=== PATIENT | male | born 1950 | race Caucasian/White ===

== ENCOUNTER 2017-03-23 13:22 | Emergency (ER) | payer OTHER, SELFPAY ==
[2017-03-23 13:24] VITALS: BP 150/94; PULSE 103; RESP 20; TEMP 38.3; O2SAT 93; BMI 31.4
--- NOTE | 2017-03-23 15:42 | EKG12_ITS ---
Test Reason : SOB Blood Pressure : / mmHG Vent. Rate : 122 BPM Atrial Rate : 122 BPM P-R Int : 142 ms QRS Dur : 078 ms QT Int : 300 ms P-R-T Axes : 049 -01 005 degrees QTc Int : 427 ms Sinus tachycardia Low voltage QRS (limb leads) Poor R wave progression Confirmed by NYA UNGER, MALOU ([id number]), video editor MIR WILLIS ([id number]) on 03/28/2017 1:56:01 PM Referred By: COLT Confirmed By:MALOU FAY MD
--- NOTE | 2017-03-23 15:42 | RAD_ITS ---
STUDY: X-RAY CHEST REASON FOR EXAM: Male, 66 years old. Cough for 6 weeks. TECHNIQUE: PA and lateral views of the chest. COMPARISON: Prior comparison studies are not available for review at this time. FINDINGS: Lungs are underexpanded crowding the bronchovascular markings. There is perihilar interstitial thickening present in both lungs. There is no demonstrated pleural abnormality. Normal size heart. Normal mediastinum and tremayne. There is prominence of the pulmonary hilar arteries with peripheral pulmonary vascular congestion. There is atherosclerotic tortuosity of the aortic arch and descending thoracic aorta. There is demineralization of the osseous structures. There are mild degenerative changes of the thoracic spine. Normal visualized ribs, clavicles, and shoulders. Surgical clips are visible in left upper quadrant. RAD/Chest PA and Lateral IMPRESSION: Underexpanded lungs with mild pulmonary congestion. Electronically Signed: Nenita Perez MD at 16:48 EST , Service support ,
[2017-03-23 16:06] LABS: Hematocrit 47.6 % (40-54); Hemoglobin 16.4 g/dl (13.0-16.5); Mean Corp Hgb Conc 34.5 g/gl (32-36); Mean Corpuscular Hgb 30.2 pg (27.0-32.0); Mean Corpuscular Volume 87.7 fL (80-94); Mean Platelet Vol. 9.7 fl (6.2-12.0); Platelet Count 293 K/mm3 (150-450); RBC Distribution Width CV 13.4 % (11.6-14.6); Red Blood Count 5.43 M/mm3 (4.6-6.2)
[2017-03-23 16:09] LABS: Scan Indicated on CBC? Y/N NO
[2017-03-23] MEDS: 0.9% Normal Saline 1,000 ML 1000 ML IV (16:16)
[2017-03-23 16:22] VITALS: BP 155/94; PULSE 102; RESP 18; O2SAT 95
[2017-03-23 16:26] LABS: Anion Gap 8 (5-15); BUN 17 mg/dL (7-18); BUN/Creat Ratio 14.9 RATIO (10-20); Calcium,Total 9.1 mg/dL (8.5-10.1); Chloride 100 mmol/L (98-107); Creatinine, Serum 1.14 mg/dL (0.70-1.30); EST Glomerular Filtration Rate 68 mL/min (>60); Est Glom Filt Rate - Afr Amer 83 mL/min (>60); Glucose 120 mg/dL (74-106); Sodium Level 134 mmol/L (136-145)
[2017-03-23] MEDS: Acetaminophen 500 MG Tablet 1000 MG PO (17:02)
[2017-03-23 17:09] VITALS: BP 154/82; PULSE 99; RESP 18; O2SAT 96
--- NOTE | 2017-03-23 17:09 | ED.DEP ---
ED Disposition - Plan for ED Patient: Chief Complaint: Cold Sx Instructions: ED Flu Prescriptions: Hydrocodone Bit/Homatropine [Hycodan Syrup] 5 ml PO Q6H PRN PRN #30 ml PRN Reason: Cough Azithromycin [Zithromax Z-Darren] 250 mg PO UD #1 box Oseltamivir Phosphate [Tamiflu] 75 mg PO BID #10 cap Referrals: Care Physician,No Primary [Primary Care Provider] -
--- NOTE | 2017-03-23 17:13 | ED.VISSUMM ---
- ER Visit Summary Date of Service: 03/23/17 Chief Complaint: URI-like illness. History of Present Illness: The patient is a 66 M who has been ill for about 6 weeks with a head cold he complains of 6 weeks of subjective fevers congestion rhinorrhea productive cough. In the past couple of days however he has developed headache muscle aches and joint aches. He does have a history of migraines. His headache is currently 5 out of 10. His muscle and joint aches are currently 2 out of 10. He denies any vomiting or diarrhea. He is not short of breath. 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 Physical Examination: Temperature 101.0. Heart rate 103 respiratory rate 20 pulse ox 93% on room air TMs are clear Neck supple Oropharynx clear Heart regular rhythms slightly tachycardic Lungs are clear without rales rhonchi or wheezes Abdomen soft. Test Results: EKG shows sinus rhythm at a rate of 122. Chest x-ray shows mild pulmonary congestion. CBC BMP unremarkable troponin negative. Influenza was positive for influenza A. Emergency Department Course and Treatment: She was treated with IV fluids and Tylenol here. Repeat vital signs are improved. Heart rate has normalized. Given his history of splenectomy with new symptoms in the past 2 to days we will start Tamiflu. Given persistent rhinosinusitis symptoms for 6 weeks I also believe antibiotics are indicated. He was prescribed azithromycin. He was given a prescription for Hycodan syrup for cough. He understands return for new or worsening symptoms was instructed on specific signs and symptoms to monitor for. All questions were answered bedside. Patient agreeable to plan was discharged home. Treatment Plan: [] Disposition: Discharge Impression: Influenza Rhinosinusitis This note was generated with [employer] dictation software. It may contain incorrect words, spelling, and punctuation that were not noted in review of the chart prior to signing ED Disposition - Plan for ED Patient: Chief Complaint: Cold Sx Instructions: ED Flu Prescriptions: Hydrocodone Bit/Homatropine [Hycodan Syrup] 5 ml PO Q6H PRN PRN #30 ml PRN Reason: Cough Azithromycin [Zithromax Z-Darren] 250 mg PO UD #1 box Oseltamivir Phosphate [Tamiflu] 75 mg PO BID #10 cap Referrals: Care Physician,No Primary [Primary Care Provider] -
== END 2017-03-23 17:37 | disposition home or self-care (01) ==
PROVIDERS: Emergency Provider Emergency Medicine
DX: J10.1 Influenza due to other identified influenza virus with other respiratory manifestations (principal); J32.9 Chronic sinusitis, unspecified; R09.89 Other specified symptoms and signs involving the circulatory and respiratory systems; G43.909 Migraine, unspecified, not intractable, without status migrainosus; Z90.81 Acquired absence of spleen; Z90.89 Acquired absence of other organs
CPT/HCPCS: 71046; 80048; 84484; 85027; 87804; 93005; 96360; 99284; J7030; A4216

== ENCOUNTER 2019-03-23 08:54 | Emergency (ER) | payer OTHER, SELFPAY ==
[2019-03-23 08:56] VITALS: BP 137/101; PULSE 89; RESP 18; TEMP 36.5; O2SAT 93; BMI 27.3
--- NOTE | 2019-03-23 09:30 | RAD_ITS ---
STUDY: X-RAY CHEST REASON FOR EXAM: Male, 68 years old. COUGH AND CONGESTION WITH HOARSENESS FOR SOMETIME NOW NOT GETTING ANY BETTER PER PATIENT. TECHNIQUE: PA and lateral views of the chest. COMPARISON: None. FINDINGS: The lungs are clear and expanded. There is no demonstrated pleural abnormality. Normal size heart. Normal mediastinum and tremayne. Normal visualized pulmonary arteries. Normal visualized aortic arch and descending thoracic aorta. There are diffuse degenerative changes of the visualized thoracic spine. Normal visualized ribs, clavicles, and shoulders. There is postoperative change of the upper abdomen. RAD/Chest PA and Lateral IMPRESSION: Degenerative changes, as described above. No demonstrated acute cardiopulmonary process. Electronically Signed: Victor Manuel Kennedy MD at 10:01 EST , Service support ,
--- NOTE | 2019-03-23 09:32 | ED.DCSUM_ITS ---
- ER Visit Summary Date of Service: 03/23/19 Chief Complaint: Cough History of Present Illness: The patient is a 68 M presenting with cough, congestion. This has been ongoing for the past 1.5 weeks. He has had subjective fever. He has had mild diarrhea. He denies abdominal pain or vomiting. He does have sick contacts. He has a mild headache. Denies chest pain or shortness of breath. Denies other complaints. Physical Examination: Vitals are stable. Patient is afebrile. Alert no acute distress. HEENT exam is unremarkable. Neck is supple. No meningismus Lungs are clear and equal bilaterally. Heart is regular rate and rhythm. Abdomen is soft nontender nondistended. Extremities are unremarkable. Skin is warm and dry. No rash No focal neurologic deficit. Remainder of exam is unremarkable. Emergency Department Course and Treatment: Chest x-ray shows no acute process. Influenza negative. His pulse ox with ambulation is 96% on room air. He is given prescription for Tessalon Perles. Advised to follow-up with primary care physician. Advised return to the ED for worsening complaints. Disposition: Discharge home Impression: URI This note was generated with [employer] dictation software. It may contain incorrect words, spelling, and punctuation that were not noted in review of the chart prior to signing ED Disposition - Plan for ED Patient: Instructions: BRONCHITIS, No Antibiotic (Adult) Prescriptions: Benzonatate [Tessalon Perle] 200 mg PO TID PRN PRN #20 cap PRN Reason: Cough Prescription Printed Referrals: Care Physician,No Primary [NON-STAFF] -
--- NOTE | 2019-03-23 10:19 | ED.DEP ---
ED Disposition - Plan for ED Patient: Instructions: BRONCHITIS, No Antibiotic (Adult) Prescriptions: Benzonatate [Tessalon Perle] 200 mg PO TID PRN PRN #20 capsule PRN Reason: Cough Referrals: Care Physician,No Primary [NON-STAFF] -
[2019-03-23 10:32] VITALS: O2SAT 95
== END 2019-03-23 10:33 | disposition home or self-care (01) ==
LOC: ED 10:05
PROVIDERS: Emergency Provider Emergency Medicine
DX: J40 Bronchitis, not specified as acute or chronic (principal); J06.9 Acute upper respiratory infection, unspecified; R19.7 Diarrhea, unspecified
CPT/HCPCS: 71046; 87804; 99282